=== PATIENT | female | born 1950 | race American Indian/Alaskan Native ===

== ENCOUNTER 2019-04-06 07:11 | Day surgery (SDC) | payer MEDICARE, MEDICAID ==
[2019-04-06] MEDS ORDERED: Propofol 200 MG/20 ML SDV IV ONE (07:12)
[2019-04-06] MEDS ORDERED: Lidocaine 1% PF 2 ML SDV INJECT ONE (07:12)
[2019-04-06] MEDS ORDERED: Sodium Chloride 0.9% 10 ML Syringe FLUSH PRN (07:15)
[2019-04-06] MEDS ORDERED: Lactated Ringers 1,000 ML IV SCH (07:15)
--- NOTE | 2019-04-06 09:36 | PCM.OPNOTE ---
- General Post-Op/Procedure Note Date of Surgery/Procedure: 04/06/19 Operative Procedure(s): c scope with bx hot loop Findings: ascending colon polyp Pre Op Diagnosis: hx of rectal ca Post-Op Diagnosis: ascending colon polyp Anesthesia Technique: MAC Primary Surgeon: Rhys Nichole Anesthesia Provider: Opal Her Pathology: colon polyp Complications: None Condition: Good Free Text/Narrative:: see dictation
[2019-04-06 10:31] VITALS: BP 113/93; PULSE 68
--- NOTE | 2019-04-06 13:51 | OR ---
DATE OF OPERATION: 04/06/2019 SURGEON: Rhys Nichole MD PROCEDURE PERFORMED: Colonoscopy with cold forceps biopsy. PREOPERATIVE DIAGNOSIS: History of rectal cancer, status post abdominoperineal resection. POSTOPERATIVE DIAGNOSIS: Ascending colon polyp. INDICATIONS FOR PROCEDURE: This is a 69-year-old white female who presents for followup colonoscopy. She was offered and accepted same. DESCRIPTION OF OPERATION: After an excellent IV sedation was administered, digital rectal exam was performed through her ostomy, which was located in the left lower quadrant of her abdomen. No marked abnormality was noted. Flexible colonoscope was inserted and advanced to the cecum. The prep was excellent. The following findings were noted: The ascending colon, there was a polypoid lesion, flat, sessile in nature, which was biopsied with the hot loop snare. This lies posterior to a fold, it appears that we did not get all the edges, but we were unable to successfully biopsy this. Completely excised at the area, it was tattooed. Transverse colon was unremarkable. Descending colon was unremarkable. Patient tolerated the procedure well, was taken to recovery. We will be sending her results by letter. /[id number] /MODL
== END 2019-04-06 09:51 | disposition home or self-care (01) ==
LOC: FB.SDS 07:11
PROVIDERS: ATTEND Surgery
DX: Z12.11 Encounter for screening for malignant neoplasm of colon (principal); C18.2 Malignant neoplasm of ascending colon; Z85.048 Personal history of other malignant neoplasm of rectum, rectosigmoid junction, and anus; Z90.49 Acquired absence of other specified parts of digestive tract
CPT/HCPCS: 00811-QZ; 88305; J2001; J2704; J7120

== ENCOUNTER 2019-05-17 06:49 | Day surgery (SDC) | payer MEDICARE, MEDICAID ==
[2019-05-17] MEDS ORDERED: Propofol 200 MG/20 ML SDV IV ONE (06:50)
[2019-05-17] MEDS ORDERED: Sodium Chloride 0.9% 10 ML Syringe FLUSH PRN (07:15)
[2019-05-17] MEDS ORDERED: Lactated Ringers 1,000 ML IV SCH (07:15)
--- NOTE | 2019-05-17 09:41 | PCM.OPNOTE ---
- General Post-Op/Procedure Note Date of Surgery/Procedure: 05/17/19 Operative Procedure(s): c scope with hot loop and cold forcep biospy Findings: residule polyp distal ascending/prox transverse colon at previous bx site Pre Op Diagnosis: colon polyp with cis Post-Op Diagnosis: Same Anesthesia Technique: MAC Primary Surgeon: Rhys Nichole Anesthesia Provider: Lindsey Ashley Pathology: polyp Complications: None Condition: Good Free Text/Narrative:: see dictation
[2019-05-17 10:05] VITALS: BP 135/71; PULSE 68
--- NOTE | 2019-05-17 15:14 | OR ---
DATE OF OPERATION: 05/17/2019 SURGEON: Rhys Nichole MD PROCEDURE PERFORMED: Colonoscopy with hot loop and hot forceps biopsies. 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 POSTOPERATIVE DIAGNOSIS: Transverse colon polyp. INDICATIONS FOR PROCEDURE: This is a 69-year-old female, who has a history of rectal cancer and has had a low anterior resection with end colostomy. On recent followup colonoscopy, she had a polyp encountered in the transverse colon. This was biopsied and had tubular adenoma present, but also had some elements of carcinoma in situ. She was offered a followup scope to see if there was any residual polyp with the understanding that if we were not able to completely remove the polyp and complete our exam, that surgery would be indicated. She agreed to this plan and presents now for followup scope. DESCRIPTION OF OPERATION: After an excellent IV sedation was administered, digital rectal exam was performed through the ostomy site. No marked abnormality was noted. Flexible colonoscope was inserted and advanced to the cecum. The prep was excellent. Following findings were noted: Again, ascending colon was unremarkable. In the transverse colon proximal to the previous tattooed point, there were 2 small areas of what appeared to be residual adenoma. These were biopsied with a combination of hot loop cold forceps and hot forceps. Checking with the light revealed no residual abnormal tissue at the end. The remainder of her colonoscopic exam was unremarkable. The colon was deflated and the scope was removed. Further treatment based on pathological findings. /[id number] /ANAL
== END 2019-05-17 10:23 | disposition home or self-care (01) ==
LOC: FB.SDS 06:49
PROVIDERS: ATTEND Surgery
DX: K63.5 Polyp of colon (principal); I25.10 Atherosclerotic heart disease of native coronary artery without angina pectoris; F17.210 Nicotine dependence, cigarettes, uncomplicated; Z86.010 Personal history of colon polyps; Z93.3 Colostomy status; Z90.49 Acquired absence of other specified parts of digestive tract; Z85.048 Personal history of other malignant neoplasm of rectum, rectosigmoid junction, and anus
CPT/HCPCS: 00812; 44389; 44392; 88305; J2704; J7120

== ENCOUNTER 2019-09-14 09:17 | Emergency (ER) | payer MEDICARE, MEDICAID ==
--- NOTE | 2019-09-14 09:50 | EDM.PDOC ---
ED HPI GENERAL MEDICAL PROBLEM - General Chief Complaint: General Stated Complaint: DIZZY Time Seen by Provider: 09/14/19 09:43 Source of Information: Reports: Patient History Limitations: Reports: No Limitations - History of Present Illness INITIAL COMMENTS - FREE TEXT/NARRATIVE: 69-year-old female who reports nausea and some dizziness for the past month. She reports that the nausea seems to have worsened over the past few days. She has had no vomiting. She reports that she has little appetite and she has not been eating that well. She has been drinking liquids well. She reports that she has had colon cancer with surgery in 2011 and has a colostomy with Pooja's pouch. She has had some bleeding from her rectum and Dr. Nichole has been having her do enemas to the Pooja pouch twice daily for about the past month. She states she occasionally has about a tablespoon of blood that is bright red from there. She reports that the stool coming from her ostomy is formed and there has been no blood in that nor has the stool been dark. She has had no fevers or chills. She has had sweats. She has pain in her rectum area that is a pinching type pain and she rates that pain as a 5/10. It is worse when she has a bowel movement after the enema. She is having no abdominal pain. No difficulty breathing. No cough. No chest pain. There are no other associated signs or symptoms. There are no other modifying factors. Onset: Other (1 month) Duration: Getting Worse Location: Reports: Other (Rectum) Quality: Reports: Other (Pinching type pain) Severity: Moderate Improves with: Reports: None Worsens with: Reports: Other (With bowel movement) Context: Reports: Other Associated Symptoms: Reports: No Other Symptoms (Except as mentioned above.) Treatments [employer]ER AND CLE[employer]ER: Reports: Other (see below) (None.) RECTUM Pain Score (Numeric/FACES): 5 - Related Data Allergies Allergy/AdvReac Type Severity Reaction Status Date / Time No Known Allergies Allergy Verified 09/14/19 09:33 Home Meds: Home Meds Multivitamin [Multivitamins] 1 cap PO DAILY 06/17/14 [History] Cyanocobalamin (Vitamin B-12) [Vitamin B-12] 500 mcg PO DAILY 10/25/15 [History] Potassium Gluconate [Potassium] 99 mg PO DAILY 10/25/15 [History] Ascorbate Calcium [Vitamin C] 500 mg PO DAILY 04/05/19 [History] Acetaminophen/HYDROcodone [[place] 325-5 MG] 1 - 2 tab PO Q6H PRN #14 tab [Rx] Ciprofloxacin [Ciprofloxacin HCl] 500 mg PO BID 7 Days #14 tab 09/14/19 [Rx] Ondansetron [Zofran ODT] 4 mg PO Q6H PRN #10 tab.dis 09/14/19 [Rx] Past Medical History HEENT History: Reports: Cataract Respiratory History: Reports: COPD Gastrointestinal History: Reports: Bowel Obstruction, Chronic Constipation, Other (See Below) Other Gastrointestinal History: hx rectal CA. COLOVAGINAL FISTULA. COLOSTOMY Genitourinary History: Reports: Retention, Urinary Psychiatric History: Reports: Addiction, Anxiety, Depression, Other (See Below) Other Psychiatric History: hx ETOH abuse Hematologic History: Reports: Blood Transfusion(s) Oncologic (Cancer) History: Reports: Colon, Renal - Infectious Disease History Infectious Disease History: Reports: Hepatitis A - Past Surgical History HEENT Surgical History: Reports: Tonsillectomy GI Surgical History: Reports: Appendectomy, Colon, Colonoscopy, Colostomy, Other (See Below) Other GI Surgeries/Procedures: colostomy x 2. COLON RESECTION. FLEX SIG Female Surgical History: Reports: Hysterectomy, Salpingo-Oophorectomy, Tubal Ligation Other Female Surgeries/Procedures: VAGINAL FISTULA REPAIR Social & Family History - Tobacco Use Smoking Status *Q: Current Every Day Smoker - Caffeine Use Caffeine Use: Reports: Coffee - Alcohol Use Alcohol Use History: No Alcohol Use Comment: Patient denies alcohol use for "a long time". - Recreational Drug Use Recreational Drug Type: Reports: Marijuana/Hashish (She states that she takes this for her rectal pain and nausea.) - Living Situation & Occupation Living situation: Reports: ED ROS GENERAL - Review of Systems Review Of Systems: See Below Constitutional: Reports: Night Sweats HEENT: Reports: No Symptoms Respiratory: Reports: No Symptoms Cardiovascular: Reports: No Symptoms Endocrine: Reports: No Symptoms GI/Abdominal: Reports: Decreased Appetite, Nausea, Other (Rectal pain with some bright red blood per rectum). Denies: Vomiting : Reports: No Symptoms Musculoskeletal: Reports: No Symptoms Skin: Reports: No Symptoms Neurological: Reports: Dizziness Psychiatric: Reports: No Symptoms Hematologic/Lymphatic: Reports: No Symptoms Immunologic: Reports: No Symptoms ED EXAM, GENERAL - Physical Exam Exam: See Below Exam Limited By: No Limitations General Appearance: Alert, WD/WN, No Apparent Distress Eye Exam: Bilateral Eye: EOMI, Normal Inspection (Sclera anicteric), PERRL Ears: Normal External Exam, Hearing Grossly Normal Ear Exam: Bilateral Ear: Auricle Normal Nose: Normal Inspection, Normal Mucosa, No Blood Throat/Mouth: Normal Inspection, Normal Oropharynx, Normal Voice, No Airway Compromise Head: Atraumatic, Normocephalic Neck: Normal Inspection, Supple, Non-Tender, Full Range of Motion Respiratory/Chest: No Respiratory Distress, Lungs Clear, Normal Breath Sounds, No Accessory Muscle Use, Chest Non-Tender Cardiovascular: Normal Peripheral Pulses, Regular Rate, Rhythm, No Edema, No Gallop Peripheral Pulses: 2+: Radial (L), Radial (R), Dorsalis Pedis (L), Dorsalis Pedis (R) GI/Abdominal: Normal Bowel Sounds, Soft, Non-Tender, No Mass, Other (Colostomy in the left abdomen and appears to be functioning normally. No hernias.) Back Exam: Normal Inspection, Full Range of Motion Extremities: Normal Inspection, Normal Range of Motion, Non-Tender, No Pedal Edema, Normal Capillary Refill Neurological: Alert, Oriented, CN II-XII Intact, Normal Cognition, No Motor/ Sensory Deficits Skin Exam: Warm, Dry, Intact, Normal Color, No Rash EKG INTERPRETATION EKG Date: 09/14/19 Time: 10:34 Rhythm: NSR Rate (Beats/Min): 71 [place]: LAD-Left Ashkum Deviation P-Wave: Present QRS: Normal ST-T: Other (Poor R-wave progression) QT: Normal Comparison: NA - No Prior EKG Course - Vital Signs Last Recorded V/S: Last Vital Signs Temp 36.4 C 09/14/19 09:20 Pulse 82 09/14/19 09:20 Resp 16 09/14/19 09:20 BP 104/71 09/14/19 09:20 Pulse Ox 98 09/14/19 09:20 Orthostatic Blood Pressure [ 107/75 Standing] Orthostatic Blood Pressure [ 95/69 Sitting] Orthostatic Blood Pressure [ 108/64 Supine] - Orders/Labs/Meds Orders: Active Orders 24 hr Category Date Time Status EKG Documentation Completion [RC] ASDIRECTED Care 09/14/19 10:08 Active Orthostatic Vital Signs [RC] ONETIME Care 09/14/19 10:56 Active Sodium Chloride 0.9% [Saline Flush] Med 09/14/19 10:06 Active 10 ml FLUSH ASDIRECTED PRN Peripheral IV Insertion Adult [OM.PC] Routine Oth 09/14/19 10:06 Ordered EKG 12 Lead [EK] Routine Ther 09/14/19 10:06 Ordered Medication Orders Sodium Chloride (Saline Flush) 10 ml FLUSH ASDIRECTED PRN PRN Reason: Keep Vein Open Labs: Laboratory Tests 09/14/19 09/14/19 09/14/19 Range/Units 10:10 10:10 10:10 WBC 4.7 (4.5-12.0) X10-3/uL RBC 4.12 (3.23-5.20) x10(6)uL Hgb 11.8 (11.5-15.5) g/dL Hct 34.9 (30.0-51.3) % MCV 84.7 (80-96) fL MCH 28.5 (27.7-33.6) pg MCHC 33.7 (32.2-35.4) g/dL RDW 13.8 (11.5-15.5) % Plt Count 384 H (125-369) X10(3)uL MPV 6.5 L (7.4-10.4) fL Neut % (Auto) 68.9 (46-82) % Lymph % (Auto) 21.3 (13-37) % [place] % (Auto) 8.8 (4-12) % Eos % (Auto) 1 (1.0-5.0) % Baso % (Auto) 0 (0-2) % Neut # (Auto) 3.3 (1.6-8.3) # Lymph # (Auto) 1.0 (0.6-5.0) # [place] # (Auto) 0.4 (0.0-1.3) # Eos # (Auto) 0.0 (0.0-0.8) # Baso # (Auto) 0.0 (0.0-0.2) # Sodium 137 (135-145) mmol/L Potassium 4.0 (3.5-5.3) mmol/L Chloride 101 (100-110) mmol/L Carbon Dioxide 26 (21-32) mmol/L BUN 11 (7-18) mg/dL Creatinine 0.9 (0.55-1.02) mg/dL Est Cr Clr Drug Dosing 45.77 mL/min Estimated GFR (MDRD) > 60 (>60) BUN/Creatinine Ratio 12.2 (9-20) Glucose 100 (80-116) mg/dL Calcium 9.4 (8.6-10.2) mg/dL Magnesium 1.9 (1.8-2.5) mg/dL Total Bilirubin 0.4 (0.1-1.3) mg/dL AST 16 (5-25) IU/L ALT 15 (12-36) U/L Alkaline Phosphatase 66 (56-112) IU/L C-Reactive Protein 6.4 H* (0.5-0.9) mg/dL Total Protein 7.7 (6.0-8.0) g/dL Albumin 2.8 L (3.2-4.6) g/dL Globulin 4.9 g/dL Albumin/Globulin Ratio 0.6 Urine Color (YELLOW) Urine Appearance (CLEAR) Urine pH (5.0-6.5) Ur Specific [place] (1.010-1.025) Urine Protein (NEGATIVE) mg/dL Urine Glucose (UA) (NORMAL) mg/dL Urine Ketones (NEGATIVE) mg/dL Urine Occult Blood (NEGATIVE) Urine Nitrite (NEGATIVE) Urine Bilirubin (NEGATIVE) Urine Urobilinogen (NEGATIVE) mg/dL Ur Leukocyte Esterase (NEGATIVE) Urine RBC (0-5) Urine WBC (0-5) Ur Squamous Epith Cells (NS,R,O) Urine Bacteria (NS) 09/14/19 Range/Units 10:43 WBC (4.5-12.0) X10-3/uL RBC (3.23-5.20) x10(6)uL Hgb (11.5-15.5) g/dL Hct (30.0-51.3) % MCV (80-96) fL MCH (27.7-33.6) pg MCHC (32.2-35.4) g/dL RDW (11.5-15.5) % Plt Count (125-369) X10(3)uL MPV (7.4-10.4) fL Neut % (Auto) (46-82) % Lymph % (Auto) (13-37) % [place] % (Auto) (4-12) % Eos % (Auto) (1.0-5.0) % Baso % (Auto) (0-2) % Neut # (Auto) (1.6-8.3) # Lymph # (Auto) (0.6-5.0) # [place] # (Auto) (0.0-1.3) # Eos # (Auto) (0.0-0.8) # Baso # (Auto) (0.0-0.2) # Sodium (135-145) mmol/L Potassium (3.5-5.3) mmol/L Chloride (100-110) mmol/L Carbon Dioxide (21-32) mmol/L BUN (7-18) mg/dL Creatinine (0.55-1.02) mg/dL Est Cr Clr Drug Dosing mL/min Estimated GFR (MDRD) (>60) BUN/Creatinine Ratio (9-20) Glucose (80-116) mg/dL Calcium (8.6-10.2) mg/dL Magnesium (1.8-2.5) mg/dL Total Bilirubin (0.1-1.3) mg/dL AST (5-25) IU/L ALT (12-36) U/L Alkaline Phosphatase (56-112) IU/L C-Reactive Protein (0.5-0.9) mg/dL Total Protein (6.0-8.0) g/dL Albumin (3.2-4.6) g/dL Globulin g/dL Albumin/Globulin Ratio Urine Color Yellow (YELLOW) Urine Appearance Slightly cloudy (CLEAR) Urine pH 7.0 H (5.0-6.5) Ur Specific [place] 1.010 (1.010-1.025) Urine Protein Negative (NEGATIVE) mg/dL Urine Glucose (UA) Normal (NORMAL) mg/dL Urine Ketones 15 H (NEGATIVE) mg/dL Urine Occult Blood Moderate H (NEGATIVE) Urine Nitrite Negative (NEGATIVE) Urine Bilirubin Negative (NEGATIVE) Urine Urobilinogen Normal (NEGATIVE) mg/dL Ur Leukocyte Esterase Small H (NEGATIVE) Urine RBC 20-30 H (0-5) Urine WBC 0-5 (0-5) Ur Squamous Epith Cells Moderate H (NS,R,O) Urine Bacteria Few H (NS) Meds: Medications Generic Name Dose Route Start Last Admin Trade Name Freq PRN Reason Stop Dose Admin Sodium Chloride 10 ml 09/14/19 10:06 Saline Flush FLUSH ASDIRECTED PRN Keep Vein Open Discontinued Medications Generic Name Dose Route Start Last Admin Trade Name Freq PRN Reason Stop Dose Admin Ceftriaxone Sodium 1 gm 09/14/19 11:22 09/14/19 11:34 Rocephin IVPUSH 09/14/19 11:23 1 gm ONETIME ONE Administration Sodium Chloride 1,000 mls @ 999 mls/hr 09/14/19 11:04 09/14/19 11:14 Normal Saline IV 09/14/19 12:04 999 mls/hr .BOLUS ONE Administration - Re-Assessments/Exams Free Text/Narrative Re-Assessment/Exam: 09/14/19 11:15: The patient's lab tests are reassuring. She does have a slightly elevated CRP her white blood cell count and her hemoglobin are normal. Her urine shows some evidence of infection. I called and discussed the patient' s case with Dr. Nichole and he reports that the patient had been evaluated by him only with a CT scan of her abdomen and pelvis and potential enteric fistula. He feels that this represents a chronic situation and he is referring the patient back to the colorectal surgeon in [place]. He recommended treating for potential urinary tract infection and I could also give her prescriptions for pain and nausea as needed. I will give the patient a 1 L bolus of normal saline IV as she does appear to be slightly dehydrated. I will also treat the patient with Rocephin 1 g IV. I will also give her Zofran 4 mg IV. I will discharge the patient on ciprofloxacin 500 mg twice a day 7 days. Prescriptions for hydrocodone 5/325 and Zofran 4 mg ODT will be given as well. Departure - Departure Time of Disposition: 12:50 Disposition: Home, Self-Care 01 Condition: Good Clinical Impression: Nausea, Malaise and fatigue, Dehydration UTI (urinary tract infection) Qualifiers: Urinary tract infection type: site unspecified Hematuria presence: with hematuria Qualified Code(s): N39.0 - Urinary tract infection, site not specified - Discharge Information *PRESCRIPTION DRUG MONITORING PROGRAM REVIEWED*: Not Applicable (I discussed the patient's case with Dr. Nichole and he okayed me to give the patient a prescription for hydrocodone 5/325) Prescriptions: Acetaminophen/HYDROcodone [[place] 325-5 MG] 1 - 2 tab PO Q6H PRN #14 tab PRN Reason: Moderate to severe pain Ciprofloxacin [Ciprofloxacin HCl] 500 mg PO BID 7 Days #14 tab Ondansetron [Zofran ODT] 4 mg PO Q6H PRN #10 tab.dis PRN Reason: Nausea/Vomiting Instructions: Urinary Tract Infection, Adult, [id number], Dehydration, Adult , [id number], Rehydration, Adult, Nausea, Adult, [id number] Referrals: Rickie Pryor MD [Primary Care Provider] - Forms: ED Department Discharge Additional Instructions: Your blood tests were all reassuring. Your urine test does show some evidence of infection. I discussed your case with Dr. 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 I am treating you for a urinary tract infection (ciprofloxacin 500 mg). I also gave you a dose of antibiotics in the emergency Department (Rocephin 1 g). He does not feel that there is anything else that needs to be done at this time. I have also given you a prescription for pain medication and nausea medication (hydrocodone 5/325 , Zofran 4 mg ODT). You also appeared to be somewhat dehydrated today and I gave you go of IV fluids for this. You need to increase your fluid intake. Rest. Dr. Nichole is referring him back to your colorectal surgeon in [place]. If you do not hear from your colorectal surgeon in the next few days, you should call Dr. Nichole's office. Back to the emergency department for high fever, vomiting, abdominal pain the concerning sign or symptom. Sepsis Event Note - Evaluation Sepsis Screening Result: No Definite Risk - Focused Exam Vital Signs: Vital Signs Temp Pulse Resp BP Pulse Ox 09/14/19 09:20 36.4 C 82 16 104/71 98 Date Exam was Performed: 09/14/19 Time Exam was Performed: 12:46 - My Orders Last 24 Hours: My Active Orders 09/14/19 10:06 Sodium Chloride 0.9% [Saline Flush] 10 ml FLUSH ASDIRECTED PRN Peripheral IV Insertion Adult [OM.PC] Routine EKG 12 Lead [EK] Routine 09/14/19 10:08 EKG Documentation Completion [RC] ASDIRECTED 09/14/19 10:56 Orthostatic Vital Signs [RC] ONETIME - Assessment/Plan Last 24 Hours: My Active Orders 09/14/19 10:06 Sodium Chloride 0.9% [Saline Flush] 10 ml FLUSH ASDIRECTED PRN Peripheral IV Insertion Adult [OM.PC] Routine EKG 12 Lead [EK] Routine 09/14/19 10:08 EKG Documentation Completion [RC] ASDIRECTED 09/14/19 10:56 Orthostatic Vital Signs [RC] ONETIME
[2019-09-14] MEDS ORDERED: Sodium Chloride 0.9% 10 ML Syringe FLUSH PRN (10:06)
[2019-09-14] MEDS ORDERED: Sodium Chloride 0.9% 1,000 ML IV ONE (11:04)
[2019-09-14] MEDS ORDERED: cefTRIAXone 2 GM Vial IVPUSH ONE (11:22)
[2019-09-14 13:32] VITALS: BP 122/68; PULSE 78
== END 2019-09-14 12:30 | disposition home or self-care (01) ==
LOC: FB.ED 09:17
DX: E86.0 Dehydration (principal); N39.0 Urinary tract infection, site not specified; R31.9 Hematuria, unspecified; J44.9 Chronic obstructive pulmonary disease, unspecified; F32.9 Major depressive disorder, single episode, unspecified; F41.9 Anxiety disorder, unspecified; F17.200 Nicotine dependence, unspecified, uncomplicated; Z90.49 Acquired absence of other specified parts of digestive tract; Z90.710 Acquired absence of both cervix and uterus; Z79.899 Other long term (current) drug therapy
CPT/HCPCS: 36415; 80053; 81001; 82272; 83735; 85025; 86140; 93005; 96361; 96374; 99284; J0696; J7030

== ENCOUNTER 2020-05-02 08:48 | Day surgery (SDC) | payer MEDICARE, MEDICAID ==
[2020-05-02] MEDS ORDERED: fentaNYL 100 MCG/2 ML SDV IV ONE (08:49)
[2020-05-02] MEDS ORDERED: Midazolam 1 MG/ML 2 ML SDV IV ONE (08:49)
[2020-05-02] MEDS ORDERED: Lidocaine 2% 5 ML SDV INJECT ONE (08:49)
[2020-05-02] MEDS ORDERED: Lactated Ringers 1,000 ML IV PRN (09:00)
[2020-05-02] MEDS ORDERED: Sodium Chloride 0.9% 10 ML Syringe FLUSH PRN (09:00)
[2020-05-02] MEDS ORDERED: acetaZOLAMIDE 500 MG Cap.ER PO ONE (11:00)
--- NOTE | 2020-05-02 12:27 | OR ---
DATE OF OPERATION: 05/02/2020 SURGEON: Keesha Venegas MD PREOPERATIVE DIAGNOSIS: 1. Visually significant cataract, right eye. 2. Floppy iris syndrome, right eye. POSTOPERATIVE DIAGNOSIS: 1. Visually significant cataract, right eye. 2. Floppy iris syndrome, right eye. PROCEDURES PERFORMED: Complex phacoemulsification with intraocular lens placement, right eye, CPT 10400. ASSISTANTS: None. ANESTHESIA: Local with sedation. COMPLICATIONS: None. BLOOD LOSS: None. IMPLANTS: Bry ACU0T0 19.5 Diopter lens implanted. CDE: 2.41. DESCRIPTION OF PROCEDURE: After risks and benefits were reviewed with the patient, consent was obtained in the preoperative area, and the operative eye was marked with a surgical pen. In the preoperative area, a pledget was used to dilate the pupil consisting of a mixture of phenylephrine 10%, cyclopentolate 2%, moxifloxacin 0.5%, and bupivacaine 0.75%. The patient was taken to the operating room, where a time-out was performed, and the patient was placed under monitored anesthesia care. Topical tetracaine was used for anesthesia. The operative eye was prepped and draped for ophthalmic surgery, and the microscope was brought into position and focused. A paracentesis incision was made, followed by injection of preservative-free 1% lidocaine into the anterior chamber, followed by injection of Viscoat into the anterior chamber. Due to floppy iris syndrome and poor pupillary dilation, a Malyugin ring was used to track the pupil to 6.25 mm. A microkeratome blade was used to make a corneal limbal incision temporally. A cystotome was used to make the beginning of the capsulorrhexis, which was carried around 360 degrees in a curvilinear fashion using Utrata forceps. A Watt cannula with BSS was used to hydrodissect and hydrodelineate the nucleus. The nucleus was removed in a divide and conquer manner using phacoemulsification. Irrigation and aspiration were used to remove the remaining cortical material. Provisc was used to inflate the capsular bag, and a pre-loaded Bry ACU0T0 19.5 diopter lens, serial number [id number] was injected into the capsular bag. A Sinskey hook was used to position and center the lens. Malyugin ring was then removed from the anterior chamber and discarded. Next, irrigation and aspiration was used to remove any remaining viscoelastic and cortical material from the anterior chamber. BSS on a cannula was used to inflate the anterior chamber and hydrate the wound. The wound was checked and found to be watertight. 1 mg of Moxifloxacin was injected into the anterior chamber. Drapes were removed and the eye was cleaned. A drop of brimonidine 0.15% and a drop of TobraDex was placed. The eye was shielded, and the patient was taken to the recovery room in stable condition. /[id number] JESICA/MARGIE
[2020-05-02 13:57] VITALS: BP 129/69; PULSE 73
== END 2020-05-02 11:23 | disposition home or self-care (01) ==
LOC: FB.SDS 08:48
PROVIDERS: ATTEND Ophthalmology
DX: H25.13 Age-related nuclear cataract, bilateral (principal); H21.81 Floppy iris syndrome; H35.362 Drusen (degenerative) of macula, left eye; E87.6 Hypokalemia; F17.210 Nicotine dependence, cigarettes, uncomplicated; Z79.899 Other long term (current) drug therapy; Z98.890 Other specified postprocedural states; Z90.49 Acquired absence of other specified parts of digestive tract
CPT/HCPCS: 00142-QZ; A9270-GY; J2001; J2250; J3010; V2632

== ENCOUNTER 2020-05-16 08:52 | Day surgery (SDC) | payer MEDICARE, MEDICAID ==
[2020-05-16] MEDS ORDERED: Midazolam 1 MG/ML 2 ML SDV IV ONE (08:53)
[2020-05-16] MEDS ORDERED: Lactated Ringers 1,000 ML IV PRN (09:00)
[2020-05-16] MEDS: Sodium Chloride 0.9% 10 ML Syringe FLUSH PRN (09:15)
[2020-05-16 11:00] VITALS: BP 110/48; PULSE 81
--- NOTE | 2020-05-16 13:18 | OR ---
DATE OF OPERATION: 05/16/2020 SURGEON: Keesha Venegas MD PREOPERATIVE DIAGNOSIS: 1. Visually significant cataract, left eye. 2. Floppy iris syndrome, left eye. POSTOPERATIVE DIAGNOSIS: 1. Visually significant cataract, left eye. 2. Floppy iris syndrome, left eye. PROCEDURES PERFORMED: Complex phacoemulsification with intraocular lens placement, left eye, CPT 38689. ASSISTANTS: None. ANESTHESIA: Local with sedation. COMPLICATIONS: None. BLOOD LOSS: None. IMPLANTS: Bry ACU0T0 20.0 diopter lens implanted. CDE: 2.12. DESCRIPTION OF PROCEDURE: After risks and benefits were reviewed with the patient, consent was obtained in the preoperative area, and the operative eye was marked with a surgical pen. In the preoperative area, a pledget was used to dilate the pupil consisting of a mixture of phenylephrine 10%, cyclopentolate 2%, moxifloxacin 0.5%, and bupivacaine 0.75%. The patient was taken to the operating room, where a time-out was performed, and the patient was placed under monitored anesthesia care. Topical tetracaine was used for anesthesia. The operative eye was prepped and draped for ophthalmic surgery, and the microscope was brought into position and focused. A paracentesis incision was made, followed by injection of preservative-free 1% lidocaine into the anterior chamber, followed by injection of Viscoat into the anterior chamber. Due to floppy iris syndrome and poor pupillary dilation, a Malyugin ring was used to track the pupil to 7.0 mm. A microkeratome blade was used to make a corneal limbal incision temporally. A cystotome was used to make the beginning of the capsulorrhexis, which was carried around 360 degrees in a curvilinear fashion using Utrata forceps. A Watt cannula with BSS was used to hydrodissect and hydrodelineate the nucleus. The nucleus was removed in a divide and conquer manner using phacoemulsification. Irrigation and aspiration were used to remove the remaining cortical material. Provisc was used to inflate the capsular bag, and a pre-loaded Bry ACU0T0 20.0 diopter lens, serial number [id number] was injected into the capsular bag. A Sinskey hook was used to position and center the lens. Malyugin ring was then removed from the anterior chamber and discarded. Next, irrigation and aspiration was used to remove any remaining viscoelastic and cortical material from the anterior chamber. BSS on a cannula was used to inflate the anterior chamber and hydrate the wound. The wound was checked and found to be watertight. 1 mg of Moxifloxacin was injected into the anterior chamber. Drapes were removed and the eye was cleaned. A drop of brimonidine 0.15% and a drop of TobraDex was placed. The eye was shielded, and the patient was taken to the recovery room in stable condition. /[id number] JESICA/MARGIE
== END 2020-05-16 11:24 | disposition home or self-care (01) ==
LOC: FB.SDS 08:52
PROVIDERS: ATTEND Ophthalmology
DX: H25.13 Age-related nuclear cataract, bilateral (principal); H35.362 Drusen (degenerative) of macula, left eye; F17.210 Nicotine dependence, cigarettes, uncomplicated; H21.81 Floppy iris syndrome; E87.6 Hypokalemia; Z79.899 Other long term (current) drug therapy; Z98.890 Other specified postprocedural states
CPT/HCPCS: 00142-QZ; J2250; V2632